=== PATIENT | male | born 1985 | race African-American/Black ===

== ENCOUNTER 2019-11-18 09:56 | Emergency (ER) | payer OTHER ==
[~2019-11-18] VITALS: Ht 190.5 cm; Wt 88.2 kg
[2019-11-18 10:20] VITALS: BP 133/79
== END 2019-11-18 12:22 | disposition home or self-care (01) ==
LOC: ER 09:57
DX: T49.8X1A Poisoning by other topical agents, accidental (unintentional), initial encounter (principal); L24.5 Irritant contact dermatitis due to other chemical products; Y92.810 Car as the place of occurrence of the external cause
CPT/HCPCS: 99281